=== PATIENT | female | born 1980 | race Caucasian/White ===

== ENCOUNTER 2017-12-29 12:15 | Inpatient (IN) | payer OTHER ==
[~2017-12-29] VITALS: Ht 170.2 cm; Wt 66.2 kg
[~2017-12-29 12:15] MED LIST: PERCOCET 5/3251 TAB PO
[2017-12-31] MEDS ORDERED: PNEU16DI2 (08:39)
[2017-12-31] MEDS ORDERED: SYNTHROID50 MCG PO (08:39)
[2018-01-01] MEDS ORDERED: PRENATAL 19 TA1 EACH (13:11)
== END 2018-01-02 11:09 | DRG 775 ==
LOC: LDR 12-31 07:52 → SURG-SUITE 12-31 10:07 → LDR 01-06 12:15
PROC: 0KQM0ZZ Repair Perineum Muscle, Open Approach (ICD-10-PCS; principal; 2017-12-31)
PROC: 10E0XZZ Delivery of Products of Conception, External Approach (ICD-10-PCS; 2017-12-31)
PROC: 4A1HXCZ Monitoring of Products of Conception, Cardiac Rate, External Approach (ICD-10-PCS; 2017-12-31)
DX: O70.1 Second degree perineal laceration during delivery (principal); Z37.0 Single live birth; Z3A.38 38 weeks gestation of pregnancy